=== PATIENT | male | born 1950 | race Caucasian/White ===

== ENCOUNTER 2024-03-18 16:00 | Inpatient (IN) | payer MEDICARE, OTHER ==
[2024-03-18 18:54] LABS: #Basophils 0.04 10x3/uL (0.0-0.2); %Basophils 0.3 % (0.0-1.0); %Lymphocytes 9.2 % (21.0-51.0); %Monocytes 11.8 % (0.0-10.0); %Neutrophils 76.4 % (42.0-75.0); Hematocrit 29.2 % (42.0-52.0); Hemoglobin 9.6 g/dL (14.0-18.0); Mean Corpuscular HGB CONC 32.9 g/dL (32.0-36.0); Mean Corpuscular Hemoglobin 32.7 pg (27.0-31.0); Mean Corpuscular Volume 99.3 fL (78.0-98.0); Mean Platelet Volume 8.1 fL (7.4-10.4); Platelet Count 221 10x3/uL (130-400); RBC Distribution Width 15.9 % (11.5-14.5); Red Blood Cell (RBC) Count 2.94 mill/uL (4.70-6.10)
[2024-03-18 19:07] LABS: INR-International Normal Ratio 1.4; Prothrombin Time 17.1 sec (12.0-14.7)
[2024-03-18 19:30] LABS: Anion Gap 12 mmol/L (10-20); BUN (Urea Nitrogen) 16 mg/dL (8.4-25.7); Calc. Creatinine Clearance 0 mL/min (70-130); Calcium 8.1 mg/dL (7.8-10.44); Carbon Dioxide 26 mmol/L (23-31); Chloride 102 mmol/L (98-107); Estimated GFR 101; Glucose 101 mg/dL (83-110); Potassium 4.1 mmol/L (3.5-5.1); Sodium 136 mmol/L (136-145)
[2024-03-18] MEDS: Pantoprazole DR 40 MG TAB PO SCH (20:43)
[2024-03-18] MEDS: Sodium Chloride 0.9% 1,000 ML IV SCH (21:10)
[2024-03-18 21:46] VITALS: BMI 23.1
[2024-03-18] MEDS: Octreotide Acetate 1,250 MCG in Sodium Chloride 0.9% 250 ML 250 ML IVPB SCH (23:02)
[2024-03-18 23:35] LABS: Hematocrit 28.6 % (42.0-52.0); Hemoglobin 9.4 g/dL (14.0-18.0); Platelet Count 246 10x3/uL (130-400)
[2024-03-19 01:58] LABS: Hematocrit 27.4 % (42.0-52.0); Hemoglobin 8.9 g/dL (14.0-18.0)
[2024-03-19 04:29] LABS: #Basophils 0.04 10x3/uL (0.0-0.2); %Basophils 0.3 % (0.0-1.0); %Eosinophils 0.2 % (0.0-10.0); %Monocytes 10.8 % (0.0-10.0); %Neutrophils 78.1 % (42.0-75.0); Hematocrit 27.2 % (42.0-52.0); Hemoglobin 8.9 g/dL (14.0-18.0); Mean Corpuscular HGB CONC 32.7 g/dL (32.0-36.0); Mean Corpuscular Hemoglobin 31.7 pg (27.0-31.0); Mean Corpuscular Volume 96.8 fL (78.0-98.0); Mean Platelet Volume 8.5 fL (7.4-10.4); Platelet Count 168 10x3/uL (130-400); RBC Distribution Width 17.4 % (11.5-14.5); Red Blood Cell (RBC) Count 2.81 mill/uL (4.70-6.10)
[2024-03-19 05:03] LABS: Anion Gap 12 mmol/L (10-20); BUN (Urea Nitrogen) 20 mg/dL (8.4-25.7); Calc. Creatinine Clearance 102 mL/min (70-130); Calcium 7.6 mg/dL (7.8-10.44); Carbon Dioxide 24 mmol/L (23-31); Chloride 104 mmol/L (98-107); Estimated GFR 102; Glucose 110 mg/dL (83-110); Sodium 136 mmol/L (136-145)
[2024-03-19 11:27] VITALS: BMI 23.1
[2024-03-19 19:23] LABS: Hemoglobin 8.8 g/dL (14.0-18.0)
[2024-03-19] MEDS: Pantoprazole DR 40 MG TAB PO SCH (20:38)
[2024-03-20] MEDS: Furosemide 40 MG TAB PO SCH (04:56)
[2024-03-20 05:00] LABS: Anion Gap 13 mmol/L (10-20); BUN (Urea Nitrogen) 28 mg/dL (8.4-25.7); Calc. Creatinine Clearance 69 mL/min (70-130); Calcium 7.7 mg/dL (7.8-10.44); Carbon Dioxide 26 mmol/L (23-31); Chloride 99 mmol/L (98-107); Estimated GFR 91; Glucose 190 mg/dL (83-110); Potassium 4.7 mmol/L (3.5-5.1); Sodium 133 mmol/L (136-145)
[2024-03-20 05:10] LABS: Hematocrit 22.9 % (42.0-52.0); Hemoglobin 7.6 g/dL (14.0-18.0); Mean Corpuscular HGB CONC 33.2 g/dL (32.0-36.0); Mean Corpuscular Hemoglobin 32.8 pg (27.0-31.0); Mean Corpuscular Volume 98.7 fL (78.0-98.0); Mean Platelet Volume 8.6 fL (7.4-10.4); Platelet Count 219 10x3/uL (130-400); RBC Distribution Width 17.6 % (11.5-14.5); Red Blood Cell (RBC) Count 2.32 mill/uL (4.70-6.10)
[2024-03-20 05:52] LABS: Anisocytosis SLIGHT = 6-15 cells HPF (0-5); Band 3 % (5-11); Basophilic Stippling SLIGHT = 1-2 cells HPF (None Seen); Dohle Bodies SLIGHT; Lymphocytes 3 % (21-51); Macrocytosis SLIGHT = 6-15 cells HPF (0-5); Metamyelocyte 2 % (0-0); Monocytes 2 % (0-10); Neutrophil 90 % (42-75); Platelet Adequacy Comment Platelets Normal; Polychromasia SLIGHT = 2-3 cells HPF (0-2); Toxic Granulation MODERATE
[2024-03-20] MEDS ORDERED: Spironolactone 100 MG TAB PO SCH (08:00)
[2024-03-20] MEDS ORDERED: Cholecalciferol 1,000 UNITS (25 MCG) TAB PO SCH (09:00)
[2024-03-20] MEDS: Cefepime 1 GM in Sodium Chloride 0.9% 100 ML IVPB SCH (10:30)
[2024-03-20] MEDS: metroNIDAZOLE 500 MG in Premix 1 BAG IVPB SCH ×2 (10:32→17:49)
[2024-03-20] MEDS: Lactulose 20 GM (30 mL) UDCUP PO SCH (10:32)
[2024-03-20] MEDS: Nadolol 40 MG TAB PO SCH (10:32)
[2024-03-20 10:50] LABS: Hematocrit 21.6 % (42.0-52.0); Hemoglobin 7.1 g/dL (14.0-18.0)
[2024-03-20 16:32] LABS: Hematocrit 22.5 % (42.0-52.0); Hemoglobin 7.8 g/dL (14.0-18.0)
[2024-03-20] MEDS: GoLYTELY 4,000 ml Bottle PO SCH (18:00)
[2024-03-20] MEDS: Spironolactone 100 MG TAB PO SCH (19:32)
[2024-03-20] MEDS: Furosemide 20 MG (2 mL) VIAL SLOW IVP SCH (19:32)
[2024-03-20] MEDS: Cefepime 2 GM in Sodium Chloride 0.9% 100 ML IVPB SCH (21:44)
[2024-03-21 05:25] LABS: Hematocrit 21.9 % (42.0-52.0); Hemoglobin 7.4 g/dL (14.0-18.0); Mean Corpuscular HGB CONC 33.8 g/dL (32.0-36.0); Mean Corpuscular Hemoglobin 32.7 pg (27.0-31.0); Mean Corpuscular Volume 96.9 fL (78.0-98.0); Mean Platelet Volume 8.8 fL (7.4-10.4); Platelet Count 158 10x3/uL (130-400); RBC Distribution Width 17.9 % (11.5-14.5); Red Blood Cell (RBC) Count 2.26 mill/uL (4.70-6.10)
[2024-03-21 05:38] LABS: INR-International Normal Ratio 1.7; Prothrombin Time 19.8 sec (12.0-14.7)
[2024-03-21 05:39] LABS: Anion Gap 14 mmol/L (10-20); BUN (Urea Nitrogen) 31 mg/dL (8.4-25.7); Calc. Creatinine Clearance 60 mL/min (70-130); Calcium 7.5 mg/dL (7.8-10.44); Carbon Dioxide 24 mmol/L (23-31); Chloride 99 mmol/L (98-107); Estimated GFR 79; Glucose 152 mg/dL (83-110); Potassium 3.8 mmol/L (3.5-5.1); Sodium 133 mmol/L (136-145)
[2024-03-21 05:42] LABS: ALT (SGPT) 21 U/L (8-55); AST (SGOT) 31 U/L (5-34); Albumin 2.2 g/dL (3.4-4.8); Alkaline Phosphatase 99 U/L (40-110); Bacteria/HPF None Seen HPF (None Seen); Bilirubin Negative (Negative); Bilirubin, Direct 0.8 mg/dL (0.1-0.3); Bilirubin, Total 1.5 mg/dL (0.2-1.2); Blood, Urine Negative (Negative); CAUTI Indications for Culture Acute Hematuria; Clarity Clear (Clear); Glucose, Urine (Dipstick) Normal (Negative); Ketone, Urine Negative (Negative); Leukocyte Negative Leu/uL (Negative); Nitrite Negative (Negative); Protein, Total 4.6 g/dL (5.8-8.1); Protein, Urine (Dipstick) 10 mg/dL (Neg-Trace); RBC/HPF None Seen HPF (0-3); Specific Gravity, Urine 1.017 (1.002-1.036); Squamous Epithelial None Seen HPF (0-3); Urobilinogen Normal mg/dL (Less than 2); WBC/HPF 0-3 HPF (0-3); pH, Urine 5.5 (5.0-9.0)
[2024-03-21] MEDS: Furosemide 40 MG TAB PO SCH (05:43)
[2024-03-21 05:45] LABS: Urine Culture Reflex No No
[2024-03-21 06:13] LABS: Anisocytosis SLIGHT = 6-15 cells HPF (0-5); Band 5 % (5-11); Hypochromia SLIGHT = 6-15 cells HPF (0-5); Monocytes 3 % (0-10); Neutrophil 92 % (42-75); Platelet Adequacy Comment Platelets Normal; Polychromasia SLIGHT = 2-3 cells HPF (0-2); Toxic Granulation SLIGHT
[2024-03-21] MEDS ORDERED: Lidocaine 1% PF 5 ML VIAL ONE (07:04)
[2024-03-21] MEDS ORDERED: PROPOFOL 40 ML ONE (07:04)
[2024-03-21] MEDS: Spironolactone 100 MG TAB PO SCH (09:18)
[2024-03-21] MEDS ORDERED: PROPOFOL 20 ML ONE (09:53)
[2024-03-21] MEDS ORDERED: PHENYLEPHRINE-NS 100 MCG/ML 10 ML SYRINGE ONE ×3 (09:55→10:44)
[2024-03-21] MEDS ORDERED: ePHEDrine Sulfate 50 MG/10 ML VIAL ONE (09:59)
[2024-03-21] MEDS: Octreotide Acetate 1,250 MCG in Sodium Chloride 0.9% 250 ML 250 ML IVPB SCH (16:54)
[2024-03-21 20:02] VITALS: BP 88/64; TEMP 97.7
[2024-03-21] MEDS: Albumin 25% 25 GM (100 mL) BOT IVPB SCH (21:17)
[2024-03-22] MEDS ORDERED: Albumin 25% 25 GM (100 mL) BOT IVPB SCH (06:00)
== END 2024-03-21 21:50 | disposition short-term general hospital (02) | DRG 348 ==
LOC: MSONC 18:00 → OBSVTOIN 18:32
PROVIDERS: ADMIT Hospitalist; ATTEND Internal Medicine
PROC: 06LY8CC Occlusion of Hemorrhoidal Plexus with Extraluminal Device, Via Natural or Artificial Opening Endoscopic (ICD-10-PCS; principal; 2024-03-21)
PROC: 0DJ08ZZ Inspection of Upper Intestinal Tract, Via Natural or Artificial Opening Endoscopic (ICD-10-PCS; 2024-03-21)
DX: K64.9 Unspecified hemorrhoids (principal); D62 Acute posthemorrhagic anemia; K76.6 Portal hypertension; I25.10 Atherosclerotic heart disease of native coronary artery without angina pectoris; I10 Essential (primary) hypertension; K70.31 Alcoholic cirrhosis of liver with ascites; J84.112 Idiopathic pulmonary fibrosis; K31.89 Other diseases of stomach and duodenum; I86.8 Varicose veins of other specified sites; Z95.5 Presence of coronary angioplasty implant and graft; Z79.82 Long term (current) use of aspirin; Z79.02 Long term (current) use of antithrombotics/antiplatelets; Z79.899 Other long term (current) drug therapy
CPT/HCPCS: 36415; 36416; 36430; 49083; 76705; 80048; 80076; 81001; 82105; 85014; 85018; 85025; 85610; 86850; 86900; 86901; J0692; J1940; J2354; J2704; J7030; J7050; P9016; P9047

== ENCOUNTER 2025-01-19 14:15 | Outpatient (CLI) | payer MEDICARE, OTHER | END 2025-01-19 14:16 | disposition home or self-care (01) | LOC: RAD 14:15 | PROVIDERS: ATTEND Internal Medicine | DX: R06.00 Dyspnea, unspecified (principal); I51.7 Cardiomegaly; J84.10 Pulmonary fibrosis, unspecified; J90 Pleural effusion, not elsewhere classified | CPT/HCPCS: 71046 ==

== ENCOUNTER 2025-02-21 09:01 | Outpatient (CLI) | payer MEDICARE, OTHER | END 2025-02-21 09:02 | disposition home or self-care (01) | LOC: RAD 09:01 | PROVIDERS: ATTEND Internal Medicine Critical Care Medicine | DX: R06.00 Dyspnea, unspecified (principal); J90 Pleural effusion, not elsewhere classified; J98.11 Atelectasis | CPT/HCPCS: 71046 ==

== ENCOUNTER 2025-04-20 10:23 | Outpatient (CLI) | payer MEDICARE, OTHER | END 2025-04-20 10:24 | disposition home or self-care (01) | LOC: RAD 10:23 | PROVIDERS: ATTEND Internal Medicine Critical Care Medicine | DX: I51.7 Cardiomegaly (principal); J84.10 Pulmonary fibrosis, unspecified; J96.11 Chronic respiratory failure with hypoxia; J45.20 Mild intermittent asthma, uncomplicated | CPT/HCPCS: 36415; 71046; 82140; 82533 ==